=== PATIENT | male | born 1940 | race Caucasian/White ===

== ENCOUNTER 2020-05-27 10:14 | Outpatient (REF) | payer SELFPAY ==
--- NOTE | 2020-05-27 11:22 | MHC.AU.HFU ---
Hearing Instrument Follow-Up- Binaural Date of Visit: 05/27/20 Right Ear: Tubing Machine Operator: Phonak Model: Bolero B50-P Serial Number: [id number] Repair Warranty: 08/27/2020 Loss and Damage Warranty: 08/27/2020 Battery Size: 13 Color: Champagne Tubing: Size 1 slim tube Type of Mold: Microsonic Canal mold in [id number] with small vent Left Ear: Tubing Machine Operator: Phonak Model: Bolero B50-P Serial Number: [id number] Repair Warranty: 08/27/2020 Loss and Damage Warranty: 08/27/2020 Battery Size: 13 Color: Champagne Tubing: Size 1 slim tube Type of Mold: Microsonic Canal mold in [id number] with small vent Follow-Up Summary: Patient recently lost his right hearing aid. He believes it fell off when he was taking off his face mask. An impression was taken of the right ear without incident. It will be sent to [facility], along with a size 1 slim tube. The loss and damage form will be submitted to [employer]. Maintenance performed on the patient's left hearing aid. Slim tube replaced. Battery contacts cleaned. Hearing aid is amplifying clearly. Recommendations: Recommendations: Patient will be contacted when the replacement hearing aid and mold have arrived. Discussed $350 charge for replacing under loss and damage warranty. Patient inquired if his [facility] would cover the cost. Discussed that we cannot bill [facility] directly for hearing aid services. He would need to call [facility] to determine if his plan covered costs associated with replacing lost hearing aids. If he would like, we can provide an itemized receipt that he could submit to [facility] to see if they would reimburse it. Will have patient pay $350 at the next visit when he picks up the hearing aid. Diagnosis Code(s): Primary Diagnosis: H90.3 Bilateral Sensorineural Hearing Loss Signature: Provider: Steffi Infante, [facility]
== END 2020-05-27 10:15 | disposition home or self-care (01) ==
LOC: HO.HAP 10:14
PROVIDERS: Visit Provider Internal Medicine
DX: Z13.89 Encounter for screening for other disorder (principal)

== ENCOUNTER 2020-07-01 10:08 | Outpatient (REF) | payer SELFPAY | END 2020-07-01 10:09 | disposition home or self-care (01) | LOC: HO.HAP 10:08 | PROVIDERS: Visit Provider Internal Medicine | DX: Z46.1 Encounter for fitting and adjustment of hearing aid (principal); H90.3 Sensorineural hearing loss, bilateral | CPT/HCPCS: V5299 ==

== ENCOUNTER 2021-04-01 09:23 | Outpatient (REF) | payer MEDICARE, OTHER, SELFPAY ==
--- NOTE | ~2021-04-01 | XR_ITS ---
EXAMINATION: XR SHOULDER, RIGHT CLINICAL INFORMATION: Pain and decreased range of motion COMPARISON: None TECHNIQUE: Three views of the right shoulder. FINDINGS: No acute fracture or dislocation is seen. The glenohumeral joint is normal. 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 Soft tissues are unremarkable. There are old-appearing right rib fractures. 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 Old-appearing right rib fractures.
== END 2021-04-01 09:24 | disposition home or self-care (01) ==
LOC: HO.HMGCX 09:23
PROVIDERS: Visit Provider Internal Medicine
DX: M25.511 Pain in right shoulder (principal)
CPT/HCPCS: 73030

== ENCOUNTER 2021-05-04 09:00 | Outpatient (RCR) | payer MEDICARE, OTHER, SELFPAY ==
--- NOTE | 2021-05-04 10:02 | MHC.PT.DC ---
[facility] [place] Office [place] Office [place] Office [address] [place]a [place] [address] [phone] F: [phone] F: [phone] F: [phone] F: [phone] Physical Therapy Discharge Report Diagnosis: This is a an 80 yo male presenting to skilled PT with a script for R shoulder pain. Date of Surgery: Date of Evaluation: 04/12/21 Date of Discharge: 05/04/21 Treatments to Date: 7 Cancellations to Date: 0 No Shows to Date: 0 Discharge Status: Achieved Goals Improved Function Independent with HEP Discharge Summary: Hawk has progressed well with therapy. He has no pain that he reports at baseline now. No issues with HEP. He participates with an exercise program at his assisted living facility. He has improved his pain, function and has returned to baseline. He has a thorough HEP that we reviewed today once more. DC to HEP at this time. Patient in agreement, understands his limits and will avoiding lifting heavy weights [place]. Electronically signed by: Melinda Velásquez PT Please sign and return to therapist. Thank you for your referral.
== END 2021-05-04 10:02 | disposition home or self-care (01) ==
LOC: HO.PTCHIC 09:00
PROVIDERS: PCP Internal Medicine; Visit Provider Internal Medicine
DX: M25.511 Pain in right shoulder (principal)
CPT/HCPCS: 97110; 97162

== ENCOUNTER 2021-06-28 08:02 | Outpatient (REF) | payer MEDICARE, OTHER, SELFPAY ==
--- NOTE | 2021-06-28 13:25 | MHC.AU.AHA ---
Adult Audiological Evaluation Date of Visit: 06/28/21 Reason for Appointment: Seth was seen for a hearing evaluation to monitor the status of his known hearing loss. Seth stated that he has noticed he needs the television turned up more lately. Additionally, he stated his bilateral Phonak Bolero B-50s seem to be quieter than they used to be. He states he has no significant changes in his medical or medication history. He denies any pain or tinnitus at today's appointment. [place] [facility] [place] Mild sloping to moderately severe sensorineural hearing loss bilaterally. Ear History: History of Ear Wax Buildup: Both Ears Bothersome Tinnitus/Ringing/Noises in Ears: Previously, however, it has since subsided History of occupational noise exposure?: Yes Medical History: Medical History: High Cholesterol Medication List: Lorazepam, paxol Hearing Instrument History- Right Ear: Smash Fixer: Phonak Model: AssertIDero B50-P Serial Number: [id number] Battery Size: 13 Repair Warranty: 08/27/2020 Loss and Damage Warranty: Used for the right ear on 07/01/2020 Dispensed By: [facility] Date of Fittin06/19/2017 Hearing Instrument History- Left Ear: Smash Fixer: Phonak Model: Bolero B50-P Serial Number: [id number] Battery Size: 13 Warranty: 08/27/2020 Loss and Damage Warranty: 08/27/2020 Dispensed By: [facility] Date of Fittin06/19/2017 Otoscopy: Right Ear: Partially occluded with cerumen Left Ear: Partially occluded with cerumen Tympanometry: Tympanometry performed due to: To assess integrity of the middle ear system Right Ear: Reduced Middle Ear Compliance (Type As) Left Ear: Reduced Middle Ear Compliance (Type As) Hearing Evaluation: Transducer(s) Used: Insert Earphones, Bone Conduction Method: Conventional Audiometry Stimuli Used: Pure Tones Right Ear: Description of Hearing: Mild sloping to severe sensorineural hearing loss from 250-8000 Hz. Left Ear: Description of Hearing: Moderate sloping to severe sensorineural hearing loss from 250-8000 Hz. Speech Recognition Threshold (SRT): Method Used: Monitored Live Voice Stimuli Used: Spondee Words Right Ear: 50 dB HL Left Ear: 50 dB HL Word Discrimination: Method: Recorded Lists Word Lists Used: NU-6 Right Ear: 56% at 85 dB HL Left Ear: 80% at 85 dB HL Comparison: Hearing thresholds and word discrimination have remained stable since previous evaluation bilaterally. Interpretation of Results: Moderate to severe sensorineural hearing loss bilaterally with stable asymmetric word recognition, right ear worse. Slightly reduced middle ear mobility. Recommendations: Audiological re-evaluation in one year. Hearing aids were cleaned and slim tubes were changed at today's appointment. Additionally, low and mid frequencies were increased by three steps to address the patient's complaint of the devices seeming softer than before. Patient was satisfied with the changes and stated the sound quality was good. Patient should return as needed for hearing aid maintenance in the future. Diagnosis: Primary Diagnosis: H90.3 Bilateral Sensorineural Hearing Loss Services Performed: Comprehensive Audiological Evaluation (CPT 32505), Tympanometry (CPT 94395) Signature: Student/Clinical Fellow: Yes: Komal Meyer B.A., Steffi Athletic Instructor I have reviewed/agreed with student/fellow documentation: Yes Provider: Steffi Morgan, [facility]
== END 2021-06-28 08:03 | disposition home or self-care (01) ==
LOC: HO.SH 08:02
PROVIDERS: Visit Provider Internal Medicine
DX: Z01.118 Encounter for examination of ears and hearing with other abnormal findings (principal); H90.3 Sensorineural hearing loss, bilateral
CPT/HCPCS: 92557; 92567

== ENCOUNTER 2021-07-12 08:25 | Outpatient (REF) | payer MEDICARE, OTHER, SELFPAY ==
--- NOTE | ~2021-07-12 | XR_ITS ---
EXAMINATION: XR CHEST CLINICAL INFORMATION: Cough, rule out pneumonia. COMPARISON: 05/24/2015 chest radiographs. TECHNIQUE: 2 views of the chest were obtained. FINDINGS: No significant abnormality is noted involving the heart, lungs, mediastinum, bony thorax or soft tissues. XR/XR chest 2V IMPRESSION: No acute cardiopulmonary process.
== END 2021-07-12 08:26 | disposition home or self-care (01) ==
LOC: HO.HMGCX 08:25
PROVIDERS: PCP Internal Medicine; Visit Provider Internal Medicine
DX: R05.9 Cough, unspecified (principal)
CPT/HCPCS: 71046

== ENCOUNTER 2022-04-28 16:27 | Emergency (ER) | payer MEDICARE, OTHER, SELFPAY ==
--- NOTE | ~2022-04-28 | XR_ITS ---
EXAMINATION: XR ABDOMEN KUB CLINICAL INDICATION: Bowel obstruction, nausea. COMPARISON: No recent similar priors. TECHNIQUE: AP view of the abdomen. FINDINGS: Nonspecific distention of both small and large bowel, loops of small bowel measure up to 3.5 cm in diameter in the left hemiabdomen. Air is noted in the rectum. No significant stool content. Surgical clips noted in the pelvis. No acute osseous abnormalities. S-shaped thoracolumbar scoliosis of the spine with degenerative changes. XR/XR KUB IMPRESSION: Nonspecific distention of both small and large bowel, which could be related with an ileus. Recommend clinical correlation and attention on follow-up.
--- NOTE | ~2022-04-28 | CT_ITS ---
EXAMINATION: CT ABDOMEN AND PELVIS WITHOUT CONTRAST CLINICAL INFORMATION: Nausea, vomiting, ileus. COMPARISON: Abdominal radiograph earlier today at 7:[address] abdomen/pelvis 02/26/2014. TECHNIQUE: Multidetector volumetric imaging was performed from the superior aspect of the liver through the pubic symphysis. Sagittal and coronal reformatted images were obtained on the technologist's workstation. This CT examination was performed using dose optimization techniques as appropriate, variously including the following: *Automated exposure control *Adjustment of mA and/or kV according to patient size (this includes techniques or standardized protocols for targeted exams where dose is matched to indication/reason for exam; i.e. extremities or head) *Use of iterative reconstruction technique DLP: 543 mGy-cm FINDINGS: LUNG BASES: Bronchial wall thickening with equivocal mild cylindrical bronchiectasis. Bibasilar subsegmental atelectasis. Small calcified granuloma in the left lower lobe. Moderate size hiatal hernia. LIVER, GALLBLADDER, AND BILIARY TREE: Multiple liver cysts with a few too small to characterize hypodensities, that are also likely statistically to represent simple cysts, are noted in retrospect also present in. Calcified granulomas in the periphery of the posterior right hepatic lobe 2013. Normal appearance of the gallbladder. No biliary ductal dilatation. PANCREAS: Limited noncontrast examination, unremarkable. SPLEEN: Limited noncontrast examination, unremarkable. ADRENAL GLANDS: No adrenal mass. KIDNEYS AND URETERS: Limited noncontrast examination. No nephrolithiasis or hydronephrosis. No significant perinephric fat stranding. A partially exophytic heterogeneous masslike observation in the upper left kidney measuring 2 cm (2:18) in internal regions higher than simple fluid in attenuation is increased in size from 1.2 cm on 02/26/2014. BLADDER: Underdistended limiting assessment of wall thickening. No perivesical fat stranding. No intraluminal calculi. GASTROINTESTINAL TRACT: Moderate size hiatal hernia. Multiple distended fluid-filled loops of small bowel are noted throughout the abdomen with mild mesenteric vasculature engorgement, that could be seen with gastroenteritis and diarrhea. No transition point or disproportionate dilatation to suspect bowel obstruction. Colonic diverticulosis without pericolonic inflammatory changes. ABDOMINAL WALL: Small right greater than left fat-containing inguinal hernias. LYMPH NODES: Mesenteric fatty haziness in the root of the mid abdomen just inferior to the pancreas (2:34) with associated prominent mesenteric lymph nodes, are not significantly changed compared to 2014. VASCULAR: Limited noncontrast examination. Aortoiliac atherosclerosis. The abdominal aorta is of normal diameter. PELVIC VISCERA: Prostatectomy. OSSEOUS STRUCTURES: S-shaped thoracolumbar scoliosis with severe degenerative changes of the spine. Stable compression deformities in the lower lumbar spine. CT/CT abdomen pelvis wo IV con IMPRESSION: 1. Multiple distended fluid-filled loops of small bowel with mild mesenteric vasculature engorgement, that could be seen with gastroenteritis and diarrhea. An early partial small bowel obstruction is less favored as no transition point or disproportional dilatation is noted, and there is also moderate degree of stool content in the colon. 2. Colonic diverticulosis but no evidence of acute diverticulitis. 3. Moderate size hiatal hernia. 4. A 2 cm heterogeneous masslike observation in the upper left kidney has increased in size since 2014. Recommend further evaluation with an elective abdominal MRI with and without IV contrast to ensure the absence of a solid neoplasm. 5. Bronchial wall thickening with equivocal mild cylindrical bronchiectasis, correlate clinically for signs of respiratory infection.
[2022-04-28 16:34] VITALS: BP 128/75; BP 130/68; PULSE 72; PULSE 74; RESP 16; TEMP 37; O2SAT 96; BMI 29.9
--- NOTE | 2022-04-28 16:45 | ED_ITS ---
HPI - Nausea/Vomiting/Diarrhea General Chief complaint: Nausea/Vomiting/Diarrhea Stated complaint: N/V X 2 DAYS Time Seen by Provider: 04/28/22 16:28 Source: patient and EMS Mode of arrival: EMS Limitations: no limitations History of Present Illness HPI Narrative: This is an 82-year-old male history of sensory neural hearing loss bilaterally, arthralgias presenting to the emergency department with concerns of nausea and 2 episodes of vomiting within the past 14 hours. Patient reports he has been feeling constantly nauseous also reports associated fatigue, malaise. Vomit is bilious, no blood. He tells me he has poor appetite. Denies any sick contacts. Denies fevers, chills, chest pain, shortness of breath, headache, vision changes, dizziness or weakness. Has not had any changes in dietary habits. Related Data Previous Rx's Medication Instructions Recorded ondansetron 4 mg disintegrating 4 mg PO Q6H PRN nausea and 04/28/22 tablet vomiting #14 tabs Allergies Allergy/AdvReac Type Severity Reaction Status Date / Time aspirin [ASPIRIN] Allergy Severe GI BLEED Verified 04/28/22 16:40 hydrocodone [HYDROCODONE] Allergy Intermediate DIZZY/NAUSE Verified 04/28/22 16:40 A Review of Systems Review of Systems: Constitutional : No Weight loss, No Fever, No Chills, No Fatigue, No Malaise ENT/Mouth : No sore throat, No Rhinorrhea Eyes: No Eye Pain, No Swelling, No Redness Cardiovascular : No Chest Pain, No SOB, No Dyspnea on Exertion, No Orthopnea, No Edema, No Palpitations Respiratory : No Cough, No Sputum, No Wheezing Gastrointestinal : + Nausea, + Vomiting, No Diarrhea, No Constipation, No abdominal Pain, No Hematochezia, No Melena Genitourinary : No Dysuria, No Urinary Frequency, No Hematuria, Musculoskeletal : No joint pain, No Myalgias, No Joint Swelling Skin : No Skin Lesions, No rash Neuro : No Weakness, No Numbness, No Dizziness, No Headache Psych : No Anxiety/Panic, No Depression All other systems reviewed and are negative Yes all other systems are reviewed and are negative [facility] Past Medical History Attestation statement: The following information was validated with the patient. Source: old records reviewed and nursing notes reviewed Social History Social History Alcohol intake: never Smoked in Last 30 Days: No Use of substances other than those prescribed or required for medical reasons: No Advance Directives: No Advance Directives Information Provided: No Physical Exam Vital Signs: Vital Signs: Last Vital Signs Temp 98.6 F 04/28/22 16:34 Pulse 105 H 04/28/22 18:42 Resp 20 04/28/22 18:42 BP 135/63 04/28/22 18:42 Pulse Ox 97 04/28/22 18:42 O2 Del Method 04/28/22 18:42 BMI result Body Mass Index 29.9 vss Appearance: Alert.? Oriented X3.? No acute distress.? Head: Normocephalic, atraumatic, no step-offs or deformities Eyes: Pupils equal, round and reactive to light. CVS: Normal heart rate and rhythm.? Pulses normal.? Respiratory: No respiratory distress.? Breath sounds normal.? Abdomen: Soft and nontender.? Skin: Skin warm and dry.? Normal skin color.? Normal skin turgor.? Extremities: No lower extremity edema.? No calf ttp. 5/5 strength to bilateral upper and lower extremities Neuro: Oriented X 3.? No motor deficit.? No sensory deficit. CN 2-12 intact Course Reevaluation(s) Reevaluation #1: Patient's CBC unremarkable. Chemistry with elevated potassium 5.6, given Lokelma and albuterol treatment. Will repeat potassium. UA without infection. COVID influenza negative. KUB with nonspecific distention of the small and la rge bowel loops which could be related to an ileus however unclear, will obtain CT scan for further evaluation. Time: 18:00 Reevaluation #2: CT scan showing multiple distended fluid-filled loops of small bowel with mild mesenteric vascular engorgement neck could be seen with gastroenteritis, consistent with patient's case. Unlikely partial small-bowel obstruction. Patient is now tolerating p.o., feeling better. Vital signs stable. There is also diverticulosis noted on exam, moderate-sized hiatal hernia and a 2 cm hete rogeneous masslike observation in the upper left kidney, these results were shared with patient, they were attached was discharged a week follow up with his PCP. There is bronchial wall thickening however no upper respiratory symptoms. Plan is to discharge patient home with [facility] when repeat potassium results. Likely viral illness. Unlikely obstruction, ileus, volvulus. Again, no signs of acute abdomen. Time: 22:42 Reevaluation #3: Potassium normalized. Patient feeling better. Educated patient on diagnosis and treatment plan, answered all question, patient verbalizes understanding. At this time patient will be discharged home, advised to return with new or worsening symptoms. Educated on worrisome signs and symptoms and when to return. At this time I feel comfortable discharge home. Time: 22:54 Medications Administered Discontinued Medications Generic Name Dose Route Start Last Admin Trade Name Freq PRN Reason Stop Dose Admin Albuterol Sulfate 10 mg 04/28/22 17:38 04/28/22 17:57 Albuterol Sulfate (0.083%) 2.5 Mg/3 Ml Vial.Neb INHALE 04/28/22 17:39 10 mg ONCE ONE Administration Ondansetron HCl 4 mg 04/28/22 16:46 04/28/22 17:49 Ondansetron Odt 4 Mg Tab.Rapdis TRANSLINGU 04/28/22 16:47 4 mg ONCE ONE Administration Sodium Zirconium Cyclosilicate 10 gm 04/28/22 17:38 04/28/22 17:50 Sodium Zirconium Cyclosilicate 10 Gm Powd.Pack PO 04/28/22 17:39 10 gm ONCE ONE Administration Medical Decision Making Medical Decision Making [facility] Narrative: 1630 82 year old male presents w/ nausea and vomiting X 14 hours PE benign Likley dehydration, viral illness. Unlikley obstruction, acute abdomen. Plan- labs, KUB, UA Differential Diagnosis Differential Diagnoses: The differential diagnosis associated with the presentation includes Likley dehydration, viral illness. Unlikley obstruction, acute abdomen. Admission/Observation Consideration of admission/observation: Escalation of care including admission/observation considered Lab Data [facility] Lab Attestation statement: I reviewed the patient's lab results. 04/28/22 16:58 04/28/22 16:58 Labs: Lab Results 04/28/22 04/28/22 04/28/22 Range/Units 16:58 16:58 16:58 WBC 10.2 (4.8-10.8) X10*3/uL RBC 4.88 (4.60-5.80) X10*6/uL Hgb 13.9 L (14.0-18.0) g/dl Hct 44.7 (42.0-52.0) % MCV 91.6 (80.0-98.0) fL MCH 28.5 (27.0-33.0) pg MCHC 31.1 (31.0-36.0) g/dl RDW 13.5 (11.0-16.0) % Plt Count 370 (160-400) X10*3/uL MPV 9.2 L (9.4-12.4) fL Immature Gran % (Auto) 0.4 (0.0-0.4) % Neut % (Auto) 62.7 (45-73) % Lymph % (Auto) 25.4 (20-40) % [place] % (Auto) 10.4 (2-11) % Eos % (Auto) 0.7 (0-4) % Baso % (Auto) 0.4 (0-2) % Lymph # (Auto) 2.6 (1.2-4.9) X10*3/uL [place] # (Auto) 1.1 (0.1-1.2) X10*3/uL Eos # (Auto) 0.1 (0.0-0.4) X10*3/uL Baso # (Auto) 0.0 (0.0-0.2) X10*3/uL Abs Immat Gran (auto) 0.04 H (0.00-0.03) X10*3/uL Absolute Neuts (auto) 6.4 (2.0-8.3) x10*3/uL Absolute Nucleated RBC 0.000 (0.0-0.012) X10*3/uL Nucleated RBC % (auto) 0.0 (0.0-0.2) /100WBC Sodium 141 (135-145) mmol/L Potassium 5.6 H (3.3-5.1) mmol/L Chloride 103 (96-108) mmol/L Carbon Dioxide 30 H (22-29) mmol/L Anion Gap 14 (12-20) BUN 28 H (9-16) mg/dL Creatinine 1.27 (0.5-1.4) mg/dL Estim Creat Clear Calc 47.8 Estimated GFR 54 Random Glucose 107 (60-115) mg/dL Calcium 8.8 (8.4-10.2) mg/dL Magnesium 1.9 (1.6-2.6) mg/dL Total Bilirubin 0.6 (0.0-1.0) mg/dL AST 24 (5-37) U/L ALT 18 (0-40) U/L Alkaline Phosphatase 70 (39-117) U/L B-Natriuretic Peptide (<100) pg/mL Total Protein 6.2 L (6.5-8.0) g/dL Albumin 3.9 (3.5-5.0) g/dL Lipase 22 (8-78) U/L Urine Color Urine Appearance Urine pH (5.0-9.0) Ur Specific Blanchard (1.005-1.025) Urine Protein (Neg-Trace) mg/dL Urine Glucose (UA) (Negative) mg/dL Urine Ketones (Negative) mg/dL Urine Blood (Negative) Urine Nitrite (Negative) Ur Leukocyte Esterase (Negative) Urine RBC (0-2) /HPF Urine WBC (0-5) /HPF Ur Squamous Epith Cells (0-2) /HPF Urine Bacteria (None Seen) Hyaline Casts (0-2) /LPF COVID-19 ([facility]) (Negative) COVID-19 Clin Com Influenza Type A ([facility]) Negative (Negative) Influenza Type B ([facility]) Negative (Negative) Influenza A & B Note See Note 04/28/22 04/28/22 04/28/22 Range/Units 16:58 16:58 18:44 WBC (4.8-10.8) X10*3/uL RBC (4.60-5.80) X10*6/uL Hgb (14.0-18.0) g/dl Hct (42.0-52.0) % MCV (80.0-98.0) fL MCH (27.0-33.0) pg MCHC (31.0-36.0) g/dl RDW (11.0-16.0) % Plt Count (160-400) X10*3/uL MPV (9.4-12.4) fL Immature Gran % (Auto) (0.0-0.4) % Neut % (Auto) (45-73) % Lymph % (Auto) (20-40) % [place] % (Auto) (2-11) % Eos % (Auto) (0-4) % Baso % (Auto) (0-2) % Lymph # (Auto) (1.2-4.9) X10*3/uL [place] # (Auto) (0.1-1.2) X10*3/uL Eos # (Auto) (0.0-0.4) X10*3/uL Baso # (Auto) (0.0-0.2) X10*3/uL Abs Immat Gran (auto) (0.00-0.03) X10*3/uL Absolute Neuts (auto) (2.0-8.3) x10*3/uL Absolute Nucleated RBC (0.0-0.012) X10*3/uL Nucleated RBC % (auto) (0.0-0.2) /100WBC Sodium (135-145) mmol/L Potassium (3.3-5.1) mmol/L Chloride (96-108) mmol/L Carbon Dioxide (22-29) mmol/L Anion Gap (12-20) BUN (9-16) mg/dL Creatinine (0.5-1.4) mg/dL Estim Creat Clear Calc Estimated GFR Random Glucose (60-115) mg/dL Calcium (8.4-10.2) mg/dL Magnesium (1.6-2.6) mg/dL Total Bilirubin (0.0-1.0) mg/dL AST (5-37) U/L ALT (0-40) U/L Alkaline Phosphatase (39-117) U/L B-Natriuretic Peptide 24 (<100) pg/mL Total Protein (6.5-8.0) g/dL Albumin (3.5-5.0) g/dL Lipase (8-78) U/L Urine Color Yellow Urine Appearance Cloudy Urine pH 5.5 (5.0-9.0) Ur Specific Blanchard >= 1.030 H (1.005-1.025) Urine Protein 30 (1+) H (Neg-Trace) mg/dL Urine Glucose (UA) Negative (Negative) mg/dL Urine Ketones Negative (Negative) mg/dL Urine Blood Negative (Negative) Urine Nitrite Negative (Negative) Ur Leukocyte Esterase Negative (Negative) Urine RBC 3-5 H (0-2) /HPF Urine WBC 0-5 (0-5) /HPF Ur Squamous Epith Cells 0-2 (0-2) /HPF Urine Bacteria None Seen (None Seen) Hyaline Casts 0-2 (0-2) /LPF COVID-19 ([facility]) Negative (Negative) COVID-19 Clin Com See Note Influenza Type A ([facility]) (Negative) Influenza Type B ([facility]) (Negative) Influenza A & B Note 04/28/22 Range/Units 22:07 WBC (4.8-10.8) X10*3/uL RBC (4.60-5.80) X10*6/uL Hgb (14.0-18.0) g/dl Hct (42.0-52.0) % MCV (80.0-98.0) fL MCH (27.0-33.0) pg MCHC (31.0-36.0) g/dl RDW (11.0-16.0) % Plt Count (160-400) X10*3/uL MPV (9.4-12.4) fL Immature Gran % (Auto) (0.0-0.4) % Neut % (Auto) (45-73) % Lymph % (Auto) (20-40) % [place] % (Auto) (2-11) % Eos % (Auto) (0-4) % Baso % (Auto) (0-2) % Lymph # (Auto) (1.2-4.9) X10*3/uL [place] # (Auto) (0.1-1.2) X10*3/uL Eos # (Auto) (0.0-0.4) X10*3/uL Baso # (Auto) (0.0-0.2) X10*3/uL Abs Immat Gran (auto) (0.00-0.03) X10*3/uL Absolute Neuts (auto) (2.0-8.3) x10*3/uL Absolute Nucleated RBC (0.0-0.012) X10*3/uL Nucleated RBC % (auto) (0.0-0.2) /100WBC Sodium 139 (135-145) mmol/L Potassium 4.3 D (3.3-5.1) mmol/L Chloride 101 (96-108) mmol/L Carbon Dioxide 27 (22-29) mmol/L Anion Gap 15 (12-20) BUN 28 H (9-16) mg/dL Creatinine 1.34 (0.5-1.4) mg/dL Estim Creat Clear Calc 45.3 Estimated GFR 51 Random Glucose 146 H (60-115) mg/dL Calcium 8.4 (8.4-10.2) mg/dL Magnesium (1.6-2.6) mg/dL Total Bilirubin 0.4 (0.0-1.0) mg/dL AST 24 (5-37) U/L ALT 17 (0-40) U/L Alkaline Phosphatase 61 (39-117) U/L B-Natriuretic Peptide (<100) pg/mL Total Protein 5.9 L (6.5-8.0) g/dL Albumin 3.9 (3.5-5.0) g/dL Lipase (8-78) U/L Urine Color Urine Appearance Urine pH (5.0-9.0) Ur Specific Blanchard (1.005-1.025) Urine Protein (Neg-Trace) mg/dL Urine Glucose (UA) (Negative) mg/dL Urine Ketones (Negative) mg/dL Urine Blood (Negative) Urine Nitrite (Negative) Ur Leukocyte Esterase (Negative) Urine RBC (0-2) /HPF Urine WBC (0-5) /HPF Ur Squamous Epith Cells (0-2) /HPF Urine Bacteria (None Seen) Hyaline Casts (0-2) /LPF COVID-19 ([facility]) (Negative) COVID-19 Clin Com Influenza Type A ([facility]) (Negative) Influenza Type B ([facility]) (Negative) Influenza A & B Note Independent Interpretation I performed an independent interpretation of an: Plain X-Ray ( XR/XR KUB IMPRESSION: Nonspecific distention of both small and large bowel, which could be related with an ileus. Recommend clinical correlation and attention on follow- up. ) and CT Scan (CT/CT abdomen pelvis wo IV con IMPRESSION: 1. Multiple distended fluid-filled loops of small bowel with mild mesenteric vasculature engorgement, that could be seen with gastroenteritis and diarrhea. An early partial small bowel obstruction is less favored as no transition point or disproportional d) Radiology Impression Discussion of test interpretation with radiology: I have reviewed the radiologist's reading. Tests considered The following testing was considered but not selected: Patient does not have tenderness to palpation of abdomen, no need for CT of the abdomen pelvis. No complaints of abdominal pain, distension or changes in bowel habits. Core Measures AMI core measures followed: Yes Measure exclusions: not indicated Critical Care Time Critical Care Time Critical Care Time: No Discharge Plan Discharge Clinical Impression: Viral illness, Nausea & vomiting, Acute hyperkalemia Patient Disposition: Home, Self-Care Instructions: Hyperkalemia (ED), Acute Nausea and Vomiting (ED), Viral Syndrome (ED) Additional Instructions: Take your medications as prescribed. If you were prescribed antibiotics today, it is important that you take your medication to their entirety, do not skip any doses, do not finish them early. Follow-up with your primary care provider this week. Return to the emergency department with new or worsening symptoms. Such as fevers, chills, chest pain, shortness of breath, nausea, vomiting, dizziness, headache, vision changes, lethargy In case of emergency call 911 Your potassium was noted to be elevated however improved after medication, please follow-up with your PCP for repeat potassium level to ensure that it remains within normal range. Please take Zofran as prescribed for nausea and vomiting, do not exceed maximum daily dose, take as indicated or else a can cause cardiac dysrhythmia ?CT/CT abdomen pelvis wo IV con IMPRESSION: 1.? Multiple distended fluid-filled loops of small bowel with mild mesenteric vasculature engorgement, that could be seen with gastroenteritis and diarrhea. An early partial small bowel obstruction is less favored as no transition point or disproportional dilatation is noted, and there is also moderate degree of stool content in the colon. 2.? Colonic diverticulosis but no evidence of acute diverticulitis. 3.? Moderate size hiatal hernia. 4.? A 2 cm heterogeneous masslike observation in the upper left kidney has increased in size since 2014. Recommend further evaluation with an elective abdominal MRI with and without IV contrast to ensure the absence of a solid neoplasm. 5.? Bronchial wall thickening with equivocal mild cylindrical bronchiectasis, correlate clinically for signs of respiratory infection. Prescriptions: New ondansetron 4 mg tablet,disintegrating 4 mg PO Q6H PRN (Reason: nausea and vomiting) Qty: 14 0RF Referrals: Puneet Camilo MD [Primary Care Provider] - 2 days Stand Alone Forms: Work/School Release
[2022-04-28 17:10] LABS: MANUAL DIFF FLAG NO
[2022-04-28 17:18] LABS: Basophils Percent Auto 0.4 % (0-2); Eosinophils Absolute Auto 0.1 X10*3/uL (0.0-0.4); Eosinophils Percent Auto 0.7 % (0-4); Hematocrit 44.7 % (42.0-52.0); Hemoglobin 13.9 g/dl (14.0-18.0); Imm Gran Abs Auto 0.04 X10*3/uL (0.00-0.03); Imm Gran Pct Auto 0.4 % (0.0-0.4); Lymphocytes Absolute Auto 2.6 X10*3/uL (1.2-4.9); Lymphocytes Percent Auto 25.4 % (20-40); Mean Corpuscular HGB Conc 31.1 g/dl (31.0-36.0); Mean Corpuscular Hemoglobin 28.5 pg (27.0-33.0); Mean Corpuscular Volume 91.6 fL (80.0-98.0); Mean Platelet Volume 9.2 fL (9.4-12.4); Monocytes Absolute Auto 1.1 X10*3/uL (0.1-1.2); Monocytes Percent Auto 10.4 % (2-11); Neutrophils Absolute Auto 6.4 x10*3/uL (2.0-8.3); Neutrophils Percent Auto 62.7 % (45-73); Platelet Count 370 X10*3/uL (160-400); Red Blood Count 4.88 X10*6/uL (4.60-5.80); Red Cell Distribution Width 13.5 % (11.0-16.0); White Blood Count 10.2 X10*3/uL (4.8-10.8)
[2022-04-28 17:26] LABS: IDNOW Serial# 9DB6401D; Influenza A Negative (Negative); Influenza B2 Negative (Negative)
[2022-04-28 17:27] LABS: COVID-19 Test Negative (Negative); IDNOW Serial# BCCEAD1C
[2022-04-28 17:28] LABS: Alanine Aminotransferase 18 U/L (0-40); Albumin Level 3.9 g/dL (3.5-5.0); Alkaline Phosphatase 70 U/L (39-117); Anion Gap 14 (12-20); Aspartate Amino Transferase 24 U/L (5-37); Bilirubin Total 0.6 mg/dL (0.0-1.0); Blood Urea Nitrogen 28 mg/dL (9-16); Calcium 8.8 mg/dL (8.4-10.2); Carbon Dioxide 30 mmol/L (22-29); Chloride 103 mmol/L (96-108); Creatinine Clr Calc Pharmacy 47.8; Estimated Glomerular Filt Rate 54; Glucose Random 107 mg/dL (60-115); Lipase 22 U/L (8-78); Magnesium 1.9 mg/dL (1.6-2.6); Potassium 5.6 mmol/L (3.3-5.1); Sodium 141 mmol/L (135-145); Total Protein 6.2 g/dL (6.5-8.0)
[2022-04-28 17:34] LABS: B Type Natriuretic Peptide 24 pg/mL (<100)
[2022-04-28] MEDS: Ondansetron ODT 4 MG TAB.RAPDIS TRANSLINGU (17:49)
[2022-04-28] MEDS: Sodium Zirconium Cyclosilicate 10 GM POWD.PACK PO (17:50)
[2022-04-28] MEDS: Albuterol Sulfate (0.083%) 2.5 MG/3 ML VIAL.NEB 10 MG INHALE (17:57)
[2022-04-28 17:58] VITALS: PULSE 63; RESP 18; O2SAT 96
[2022-04-28 18:42] VITALS: BP 135/63; PULSE 105; RESP 20; O2SAT 97
[2022-04-28 19:09] LABS: Appearance Urine Cloudy; Color Urine Yellow; Glucose Urine UA Negative (Negative); Leukocyte Esterase Urine Negative (Negative); Nitrite Urine Negative (Negative); PH 5.5 (5.0-9.0); Specific Gravity - Urine >= 1.030 (1.005-1.025); UMIC TRIGGER UACC YES; Urine Blood Negative (Negative); Urine Ketones Negative (Negative); Urine Protein 30 (1+) mg/dL (Neg-Trace)
[2022-04-28 19:11] LABS: Bacteria Urine None Seen (None Seen); Hyaline Casts Urine 0-2 /LPF (0-2); Squamous Epithelial Cell Urine 0-2 /HPF (0-2); WBC Urine 0-5 /HPF (0-5)
[2022-04-28 22:51] LABS: Alanine Aminotransferase 17 U/L (0-40); Albumin Level 3.9 g/dL (3.5-5.0); Alkaline Phosphatase 61 U/L (39-117); Anion Gap 15 (12-20); Aspartate Amino Transferase 24 U/L (5-37); Bilirubin Total 0.4 mg/dL (0.0-1.0); Blood Urea Nitrogen 28 mg/dL (9-16); Calcium 8.4 mg/dL (8.4-10.2); Carbon Dioxide 27 mmol/L (22-29); Chloride 101 mmol/L (96-108); Creatinine Clr Calc Pharmacy 45.3; Estimated Glomerular Filt Rate 51; Glucose Random 146 mg/dL (60-115); Potassium 4.3 mmol/L (3.3-5.1); Sodium 139 mmol/L (135-145); Total Protein 5.9 g/dL (6.5-8.0)
[2022-04-28] MEDS: Metoclopramide HCl 10 MG TABLET PO (23:42)
[2022-04-28] MEDS: diphenhydrAMINE HCL 25 MG CAPSULE PO (23:42)
== END 2022-04-28 23:47 | disposition home or self-care (01) ==
PROVIDERS: Physician Assistant; Emergency Provider Emergency Medicine Emergency Medical Services; PCP Internal Medicine
DX: B34.9 Viral infection, unspecified (principal); E87.5 Hyperkalemia; R11.2 Nausea with vomiting, unspecified; R19.7 Diarrhea, unspecified; R06.02 Shortness of breath; Z20.822 Contact with and (suspected) exposure to COVID-19; Z20.828 Contact with and (suspected) exposure to other viral communicable diseases; Z79.899 Other long term (current) drug therapy
CPT/HCPCS: 36415; 74018; 74176; 80053; 81001; 81003; 83690; 83735; 83880; 85025; 87502; 87635; 94640; 99284

== ENCOUNTER 2022-09-28 09:30 | Outpatient (REF) | payer MEDICARE, OTHER, SELFPAY | END 2022-09-28 09:31 | disposition home or self-care (01) | LOC: HO.SH 09:30 | PROVIDERS: Visit Provider Internal Medicine | DX: Z01.118 Encounter for examination of ears and hearing with other abnormal findings (principal); H90.3 Sensorineural hearing loss, bilateral | CPT/HCPCS: 92557 ==

== ENCOUNTER 2022-09-28 10:35 | Outpatient (REF) | payer SELFPAY ==
--- NOTE | 2022-09-28 12:40 | MHC.AU.HA3 ---
Hearing Instrument Follow-Up- Binaural Date of Visit: 09/28/22 Right Ear: Sebastian, Model, Color, Serial Number: Carlos Enrique Bennett [id number] SN: [id number] Color: Josy Strategic Debriefing Officer Repair Warranty: 08/27/2020 Strategic Debriefing Officer Loss and Damage Warranty: USED 07/01/2020 Battery Size: 13 Recreation Worker/Slim Tube: #1 slim tube Earmold/Dome/CShell/SlimTip:Microsonic Canal mold in [id number] with small vent Dispensed By: [facility] Date of Fittin06/19/2017 Left Ear: Sebastian, Model, Color, Serial Number: Carlos Enrique Bennett [id number] SN: [id number] Color: Josy Strategic Debriefing Officer Repair Warranty: 08/27/2020 Strategic Debriefing Officer Loss and Damage Warranty: 08/27/2020 Battery Size: 13 Recreation Worker/Slim Tube: #1 slim tube Earmold/Dome/CShell/SlimTip: Microsonic Canal mold in [id number] with small vent Dispensed By: [facility] Date of Fittin06/19/2017 Follow-Up Summary: Seth returned for routine hearing aid maintenance following updated audiogram (see separate report). He reported that overall he is having minimal trouble hearing people in conversations and thinks his hearing aids are still meeting his needs. The only issue he noted was difficulty hearing the television, depending on the program. He currently uses headphones while he watches television. Upon inspection, the right tube and ear mold were connected to the left hearing aid and the left tube and ear mold were connected to the right hearing aid. Cleaned the hearing aids and ear molds. Replaced tubing and put on appropriate hearing aid with ear mold. Seth removes the slim tubes to clean them and may have replaced them on the wrong hearing aids. Provided 2 green slim tube cleaning tools at Seth's request. Advised to look for the red color indicator on right hearing aid. Left hearing aid is missing color indicator - tried to replace it but it would not stay in place. No programming changes as hearing is stable and Seth is satisfied with the sound quality. Briefly discussed new hearing aids due to age of current pair. Seth reported that he will likely be ready to pursue new hearing aids next year. Recommendations: Hearing instrument follow-up or maintenance as needed. Diagnosis Code(s): Primary Diagnosis: H90.3 Bilateral Sensorineural Hearing Loss Signature: Provider: Sony Martins, JESSENIA-A
== END 2022-09-28 10:36 | disposition home or self-care (01) ==
LOC: HO.HAP 10:35
PROVIDERS: Visit Provider Internal Medicine
DX: Z46.1 Encounter for fitting and adjustment of hearing aid (principal); H90.3 Sensorineural hearing loss, bilateral
CPT/HCPCS: 92593

== ENCOUNTER 2023-05-11 11:17 | Emergency (ER) | payer MEDICARE, OTHER, SELFPAY ==
--- NOTE | ~2023-05-11 | XR_ITS ---
EXAMINATION: XR CHEST CLINICAL INFORMATION: Cough COMPARISON: 07/12/2021 TECHNIQUE: 2 views of the chest were obtained. FINDINGS: Heart and mediastinum within normal limits. Tortuous, calcified aorta. No vascular congestion. Bibasilar atelectasis. No consolidations or effusions. Bony structures are intact. XR/XR chest 2V IMPRESSION: Bibasilar atelectasis.
[2023-05-11 11:27] VITALS: BP 184/71; PULSE 80; RESP 16; TEMP 38.4; O2SAT 98; BMI 27.3
--- NOTE | 2023-05-11 11:35 | ED.URI ---
HPI - URI/Sore Throat General Chief Complaint: Upper Respiratory Symptoms Stated Complaint: COUGH X 3 DAYS Time Seen by Provider: 05/11/23 11:24 Source: patient and EMS Mode of arrival: EMS Limitations: no limitations History of Present Illness HPI Narrative: 83 years old male presented via ambulance with a chief complaint of cough congestion for about 3 days. He lives in assisted living cough is productive he has been taking Robitussin. There is no vomiting no abdominal pain no chest pain no other systemic symptoms MD elicited complaint: fever and cough Onset (ago): day(s) (3) Severity: moderate Description of mucous: yellow Able to tolerate fluids by mouth: Yes Exacerbating factors: nothing Relieving factors: nothing Related Data Previous Rx's Medication Instructions Recorded ondansetron 4 mg disintegrating 4 mg PO Q6H PRN nausea and 04/28/22 tablet vomiting #14 tabs doxycycline monohydrate 100 mg 100 mg PO BID #20 caps 05/11/23 capsule (Monodox) Allergies Allergy/AdvReac Type Severity Reaction Status Date / Time aspirin [ASPIRIN] Allergy Severe GI BLEED Verified 04/28/22 16:40 hydrocodone [HYDROCODONE] Allergy Intermediate DIZZY/NAUSE Verified 04/28/22 16:40 A Review of Systems Eyes: Eyes: Reports no additional eye complaints Cardiovascular: Cardiovascular: Reports no additional cardiovascular complaints Respiratory: Respiratory: Reports cough PMFSH Past Medical History Attestation statement: The following information was validated with the patient. Social History Social History Alcohol intake: never Advance Directives: Yes Advance Directives on File: Yes Advance Directives Date on File: 05/11/23 Physical Exam Vital Signs: Vital Signs: Last Vital Signs Temp 99.1 F 05/11/23 14:51 Pulse 74 05/11/23 14:51 Resp 16 05/11/23 14:51 BP 146/58 H 05/11/23 14:51 Pulse Ox 94 05/11/23 14:51 O2 Del Method Room Air 05/11/23 14:51 BMI result Body Mass Index 27.3 Const: General: cooperative Nutritional Appearance: well nourished Orientation/consciousness: patient oriented x3 Limitations: no limitations HEENT: Head: Yes normal to inspection General nose exam: Normal external nose present Face and sinus: Yes normal facial exam Mouth: Normal oral and palatal mucosa present Neck: Neck: Yes normal visual inspection Chest: Chest palpation & inspection: normal inspection of the chest Resp: Effort & Inspection: normal respiratory effort Auscultation: rhonchi Cardio: Jugular venous distension: no JVD Rate: regular rate Rhythm: regular rhythm GI: Inspection: Yes normal to inspection Palpation (GI): Soft to palpation Percussion: Yes normal to percussion Skin: General skin exam: no rashes or lesions noted and elasticity normal Rashes: no rashes Neuro: General: patient oriented x3 Extrem: General: Yes normal to inspection Course Course Course Narrative: Patient presented with cough congestion will get chest x-ray labs and reassess Reevaluation(s) Reevaluation #1: better I did the CURB-65 score for pneumonia he score 1 point low risk,outpatient AB appropriate,CXR read by Rad as atelectasis but I think could be early pneumonia Time: 15:03 Medications Administered Discontinued Medications Generic Name Dose Route Start Last Admin Trade Name Freq PRN Reason Stop Dose Admin Acetaminophen 975 mg 05/11/23 11:32 05/11/23 11:46 Acetaminophen 325 Mg Tablet PO 05/11/23 11:33 975 mg ONCE ONE Administration Doxycycline Hyclate 100 mg/ 250 mls @ 166.67 mls/hr 05/11/23 14:59 05/11/23 15:34 Sodium Chloride IV 05/11/23 16:28 166.67 mls/hr ONCE ONE Administration Medical Decision Making Medical Decision Making [facility] Narrative: Presented with cough shortness of breath he is febrile 101.2 will get labs chest x-ray Differential Diagnosis Differential Diagnoses: The differential diagnosis associated with the presentation includes Pneumonia/bronchitis/COVID/influenza Admission/Observation Consideration of admission/observation: Escalation of care including admission/observation considered The consider admission however ,every oxygen saturation is good ,respiration is 16,I think he can be d/c on po AB Lab Data [facility] Lab Attestation statement: I reviewed the patient's lab results. 05/11/23 11:45 05/11/23 11:45 Labs: Lab Results 05/11/23 05/11/23 Range/Units 11:45 11:57 WBC 15.0 H (4.8-10.8) X10*3/uL RBC 5.43 (4.60-5.80) X10*6/uL Hgb 15.6 (14.0-18.0) g/dl Hct 48.6 (42.0-52.0) % MCV 89.5 (80.0-98.0) fL MCH 28.7 (27.0-33.0) pg MCHC 32.1 (31.0-36.0) g/dl RDW 13.5 (11.0-16.0) % Plt Count 421 H (160-400) X10*3/uL MPV 9.2 L (9.4-12.4) fL Immature Gran % (Auto) 0.5 H (0.0-0.4) % Neut % (Auto) 86.5 H (45-73) % Lymph % (Auto) 7.6 L (20-40) % [place] % (Auto) 4.9 (2-11) % Eos % (Auto) 0.2 (0-4) % Baso % (Auto) 0.3 (0-2) % Lymph # (Auto) 1.2 (1.2-4.9) X10*3/uL [place] # (Auto) 0.7 (0.1-1.2) X10*3/uL Eos # (Auto) 0.0 (0.0-0.4) X10*3/uL Baso # (Auto) 0.0 (0.0-0.2) X10*3/uL Abs Immat Gran (auto) 0.07 H (0.00-0.03) X10*3/uL Absolute Neuts (auto) 13.0 H (2.0-8.3) x10*3/uL Absolute Nucleated RBC 0.000 (0.0-0.012) X10*3/uL Nucleated RBC % (auto) 0.0 (0.0-0.2) /100WBC Hold Blue Top SEE NOTE Sodium 139 (135-145) mmol/L Potassium 4.1 (3.3-5.1) mmol/L Chloride 102 (96-108) mmol/L Carbon Dioxide 29 (22-29) mmol/L Anion Gap 12 (12-20) BUN 16 (9-16) mg/dL Creatinine 1.30 (0.5-1.4) mg/dL Estim Creat Clear Calc 43.6 Estimated GFR 53 Random Glucose 111 (60-115) mg/dL Lactic Acid 1.3 (0.5-2.0) mmol/L Calcium 9.6 D (8.4-10.2) mg/dL Total Bilirubin 0.8 (0.0-1.0) mg/dL AST 16 (5-37) U/L ALT 13 (0-40) U/L Alkaline Phosphatase 86 (39-117) U/L Total Protein 7.4 (6.5-8.0) g/dL Albumin 4.4 (3.5-5.0) g/dL Influenza Type A (PCR) NEGATIVE (Negative) Influenza Type B (PCR) NEGATIVE (Negative) RSV RNA Qual (PCR) NEGATIVE (Negative) SARS-CoV-2 RNA (RT-PCR) NEGATIVE (Negative) Independent Interpretation I performed an independent interpretation of an: Plain X-Ray Interpretation: My review question early pneumonia Radiology Impression Discussion of test interpretation with radiology: I have reviewed the radiologist's reading. Radiologist Impression: CLINICAL INFORMATION: Cough COMPARISON: 07/12/2021 TECHNIQUE: 2 views of the chest were obtained. FINDINGS: Heart and mediastinum within normal limits. Tortuous, calcified aorta. No vascular congestion. Bibasilar atelectasis. No consolidations or effusions. Bony structures are intact. XR/XR chest 2V IMPRESSION: Bibasilar atelectasis. Discharge Plan Discharge Clinical Impression: Upper respiratory infection, Bronchitis Patient Disposition: Home, Self-Care Instructions: Acute Bronchitis (ED) Additional Instructions: Take antibiotic as directed twice a day also take Tylenol as needed for fever return if you are worse Prescriptions: New doxycycline monohydrate [Monodox] 100 mg capsule 100 mg PO BID Qty: 20 0RF No Action ondansetron 4 mg tablet,disintegrating 4 mg PO Q6H PRN (Reason: nausea and vomiting) Qty: 14 0RF Referrals: Puneet Camilo MD [Primary Care Provider] - 3 days Discharge Date/Time: 05/11/23 19:04
[2023-05-11] MEDS: Acetaminophen 325 MG TABLET 975 MG PO (11:46)
[2023-05-11 11:49] LABS: MANUAL DIFF FLAG NO
[2023-05-11 11:53] LABS: Basophils Percent Auto 0.3 % (0-2); Eosinophils Percent Auto 0.2 % (0-4); Hematocrit 48.6 % (42.0-52.0); Hemoglobin 15.6 g/dl (14.0-18.0); Imm Gran Abs Auto 0.07 X10*3/uL (0.00-0.03); Imm Gran Pct Auto 0.5 % (0.0-0.4); Lymphocytes Absolute Auto 1.2 X10*3/uL (1.2-4.9); Lymphocytes Percent Auto 7.6 % (20-40); Mean Corpuscular HGB Conc 32.1 g/dl (31.0-36.0); Mean Corpuscular Hemoglobin 28.7 pg (27.0-33.0); Mean Corpuscular Volume 89.5 fL (80.0-98.0); Mean Platelet Volume 9.2 fL (9.4-12.4); Monocytes Absolute Auto 0.7 X10*3/uL (0.1-1.2); Monocytes Percent Auto 4.9 % (2-11); Neutrophils Percent Auto 86.5 % (45-73); Platelet Count 421 X10*3/uL (160-400); Red Blood Count 5.43 X10*6/uL (4.60-5.80); Red Cell Distribution Width 13.5 % (11.0-16.0)
[2023-05-11 12:10] LABS: Alanine Aminotransferase 13 U/L (0-40); Albumin Level 4.4 g/dL (3.5-5.0); Alkaline Phosphatase 86 U/L (39-117); Anion Gap 12 (12-20); Aspartate Amino Transferase 16 U/L (5-37); Bilirubin Total 0.8 mg/dL (0.0-1.0); Blood Urea Nitrogen 16 mg/dL (9-16); Calcium 9.6 mg/dL (8.4-10.2); Carbon Dioxide 29 mmol/L (22-29); Chloride 102 mmol/L (96-108); Creatinine Clr Calc Pharmacy 43.6; Estimated Glomerular Filt Rate 53; Glucose Random 111 mg/dL (60-115); Potassium 4.1 mmol/L (3.3-5.1); Sodium 139 mmol/L (135-145); Total Protein 7.4 g/dL (6.5-8.0)
[2023-05-11 12:20] LABS: Lactic Acid 1.3 mmol/L (0.5-2.0)
[2023-05-11 12:26] VITALS: O2SAT 98
[2023-05-11 12:27] LABS: Influenza A PCR NEGATIVE (Negative); Influenza B PCR NEGATIVE (Negative); Resp Syncy Virus RNA Qual PCR NEGATIVE (Negative); SARS COV2 PCR INHOUSE NEGATIVE (Negative)
[2023-05-11 12:42] VITALS: BP 161/67; PULSE 82; RESP 16; TEMP 37; O2SAT 94
[2023-05-11 14:51] VITALS: BP 146/58; PULSE 74; RESP 16; TEMP 37.3; O2SAT 94
--- NOTE | 2023-05-11 14:51 | PC.NURSE ---
continues to rest quietly in bed with no obvious signs/symptoms of distress. speaking in full clear sentences. continues with cough producing clear sputum, otherwise offers no complaints. awaiting dispo at this time.
[2023-05-11] MEDS: Doxycycline Hyclate 100 MG in 0.9 % Sodium Chloride 250 ML 166.67 MG IV (15:34)
== END 2023-05-11 19:04 | disposition home or self-care (01) ==
PROVIDERS: Emergency Provider Emergency Medicine; PCP Internal Medicine
DX: J06.9 Acute upper respiratory infection, unspecified (principal); J40 Bronchitis, not specified as acute or chronic; Z11.52 Encounter for screening for COVID-19; Z20.828 Contact with and (suspected) exposure to other viral communicable diseases
CPT/HCPCS: 0241U; 36415; 71046; 80053; 83605; 85025; 87040; 96374; 99284; 99285

== ENCOUNTER 2023-11-27 07:50 | Outpatient (REF) | payer MEDICARE, OTHER, SELFPAY | END 2023-11-27 07:51 | disposition home or self-care (01) | LOC: HO.SH 07:50 | PROVIDERS: Visit Provider Internal Medicine | DX: Z01.118 Encounter for examination of ears and hearing with other abnormal findings (principal); H90.3 Sensorineural hearing loss, bilateral | CPT/HCPCS: 92552; 92556 ==

== ENCOUNTER 2023-11-27 08:42 | Outpatient (REF) | payer SELFPAY ==
--- NOTE | 2023-11-27 08:56 | MHC.AU.HA3 ---
Hearing Instrument Follow-Up- Binaural Date of Visit: 11/27/23 Right Ear: Sebastian, Model, Color, Serial Number: Carlos Enrique Bennett [id number] SN: [id number] Color: Alinae Intelligence Agent Repair Warranty: 08/27/2020 Intelligence Agent Loss and Damage Warranty: USED 07/01/2020 Battery Size: 13 Setter Molding And Coremaking Machines/Slim Tube: #1 slim tube Earmold/Dome/CShell/SlimTip:Microsonic Canal mold in [id number] with small vent Dispensed By: [facility] Date of Fittin06/19/2017 Left Ear: Sebastian, Model, Color, Serial Number: Carlos Enrique [id number] SN: [id number] Color: Josy Intelligence Agent Repair Warranty: 08/27/2020 Intelligence Agent Loss and Damage Warranty: 08/27/2020 Battery Size: 13 Setter Molding And Coremaking Machines/Slim Tube: #1 slim tube Earmold/Dome/CShell/SlimTip: Microsonic Canal mold in [id number] with small vent Dispensed By: [facility] Date of Fittin06/19/2017 Follow-Up Summary: Clean and check following updated hearing test. Both hearing aids not working, tubes/ear molds occluded with wax. Cleaned hearing aids and ear molds. Replaced tubing. Vacuumed microphones. Ran through dehumidifier. Listening check demonstrated hearing aids amplifying clearly. Battery contacts full of debris - cleaned as best as possible. Provided extra green slim tube cleaning tools. No programming changes at this time - Hearing is stable. Seth is interested in new hearing aids; however, he is in the process of moving to [place] to be closer to his daughter. He plans to find an audiology clinic there to pursue new hearing aids. Recommendations: Hearing instrument follow-up or maintenance as needed. Please contact our clinic with any questions or concerns. Diagnosis Code(s): Primary Diagnosis: H90.3 Bilateral Sensorineural Hearing Loss Signature: Provider: Sony Martins, [facility]
== END 2023-11-27 08:43 | disposition home or self-care (01) ==
LOC: HO.HAP 08:42
PROVIDERS: Visit Provider Internal Medicine
DX: Z46.1 Encounter for fitting and adjustment of hearing aid (principal); H90.3 Sensorineural hearing loss, bilateral
CPT/HCPCS: 92593